=== PATIENT | female | born 1995 | race African-American/Black ===

== ENCOUNTER 2018-04-20 11:11 | Emergency (ER) | payer OTHER | END 2018-04-20 13:12 | disposition home or self-care (01) | LOC: ERS 11:11 | DX: R09.81 Nasal congestion (principal); L98.9 Disorder of the skin and subcutaneous tissue, unspecified | CPT/HCPCS: 99282 ==

== ENCOUNTER 2019-05-13 15:17 | Emergency (ER) | payer OTHER ==
[2019-05-13 16:03] LABS: Bilirubin Small (Negative); Blood, Urine Moderate (Negative); Glucose, Urine (Dipstick) Negative (Negative); Leukocyte Small (Negative); Nitrite Negative (Negative); Protein, Urine (Dipstick) 100 mg/dL (Neg-Trace)
[2019-05-13 16:06] LABS: Clarity Turbid (Clear)
[2019-05-13 16:09] LABS: Bacteria/HPF 4+ HPF (None Seen); Squamous Epithelial Greater than 50 HPF (0-3)
== END 2019-05-13 16:17 | disposition short-term general hospital (02) ==
LOC: ERS 15:17
DX: O26.893 Other specified pregnancy related conditions, third trimester (principal); N89.8 Other specified noninflammatory disorders of vagina; O99.89 Other specified diseases and conditions complicating pregnancy, childbirth and the puerperium; R30.0 Dysuria; Z3A.40 40 weeks gestation of pregnancy
CPT/HCPCS: 81003; 81015

== ENCOUNTER 2019-05-13 15:56 | Inpatient (IN) | payer OTHER ==
[~2019-05-13 15:56] MED LIST: Bupivacaine 0.25% HCL 30 ML VIAL ONE
[2019-05-13 16:44] VITALS: BMI 41.0
[2019-05-13] MEDS ORDERED: hydrALAZINE 20 MG/ML VIAL SLOW IVP PRN ×2 (17:04→19:04)
--- NOTE | 2019-05-13 17:06 | PDOC.LDHP ---
Labor and Delivery H&P Chief complaint: contractions HPI: 23 y/o G1 at 40w4d presents with ctx for the last few hours. Denies VB, LOF, or decreased FM. Reports she saw Dr. Mack in first trimester but has otherwise not had care. ROS neg for HEENT, cv, pulm, gi, gu, neuro, psych, skin, musculoskeletal or constitutional symptoms other than mentioned above. OB History Details: First Current complications: none Past Medical History: None Current medications: none Previous surgical history: none Allergies/Adverse Reactions: Allergies Allergy/AdvReac Type Severity Reaction Status Date / Time No Known Allergies Allergy Verified 05/13/19 16:34 Social history: none - Physical Exam Vital signs reviewed and normal: yes General: NAD, resting Lungs: nonlabored breathing Abdomen: gravid Extremeties: no edema FHT: category 1 (130s, mod variability, + accels, no decels) [place] contractions every: irregular - Vaginal Exam cm dilated: 2 Effacement: 50% Station: -2 - Assessment L&D Assessment: medically indicated induction (anhydramnios on formal ultrasound at term) - Plan Plan: admit to L&D, labor augmentation if indicated, informed consent obtained, anesthesia consult for pain management (if desired)
[2019-05-13] MEDS ORDERED: HYDROcodone/Acetaminophen 5/325 mg Tablet PO PRN ×2 (19:04)
[2019-05-13] MEDS ORDERED: Carboprost 250 MCG/ML AMP IM PRN (19:04)
[2019-05-13] MEDS ORDERED: Methylergonovine 0.2 MG/ML VIAL IM PRN (19:04)
[2019-05-13] MEDS ORDERED: Diphenoxylate HCl/Atropine Tablet PO PRN ×2 (19:04)
[2019-05-13] MEDS ORDERED: Acetaminophen 500 MG TAB PO PRN (19:04)
[2019-05-13] MEDS ORDERED: Promethazine HCl 25 MG/ML VIAL IM PRN (19:04)
[2019-05-13] MEDS ORDERED: Ibuprofen 800 MG TAB PO PRN (19:04)
[2019-05-13] MEDS ORDERED: Ondansetron PF 4 MG/2 ML Vial IVP PRN (19:04)
[2019-05-13] MEDS ORDERED: Misoprostol 200 MCG TAB PR PRN (19:04)
[2019-05-13] MEDS ORDERED: NS / Oxytocin 40 units/1000ml 1,000 ML IV PRN (19:04)
[2019-05-13] MEDS ORDERED: Lidocaine 1% (PF) 30 ML VIAL SC PRN (19:04)
[2019-05-13] MEDS ORDERED: Butorphanol Tartrate 1 MG/ML VIAL SLOW IVP PRN (19:04)
[2019-05-13] MEDS ORDERED: NS w/ Oxytocin 10 units 500 ML IV SCH (19:15)
--- NOTE | 2019-05-13 19:44 | ULT ---
ULTRASOUND OBSTETRICAL COMPLETE: DATE: 05/13/2019 HISTORY: 23-year-old female with no care FINDINGS: number: jensen lie: Cephalic Maternal cervix: Obscured by shadowing from the head. Placenta: Anterior. Amniotic fluid volume: No amniotic fluid pocket identified. ABIGAIL = 0cm heart rate: 127 bpm The following anatomy is visualized: Head, stomach, kidneys, and bladder. The rest of the anatomy is not visualized because of lack of amniotic fluid and low position of head. biometry: Biparietal diameter (BPD): 9.1 cm 36 w 6 d Head circumference (HC): 32.7 cm 37 w 1 d Abdominal circumference (AC): 34.9 cm 38 w 6 d Femur length (FL): 7.5 cm 38 w 3 d Average ultrasound age (AUA): 37 w 0 d Estimated date of delivery (DIANE): 06/03/2019 Estimated weight (EFW): 3445 g +/- 510 g IMPRESSION: 1) Live 3rd trimester intrauterine gestation. 2) Estimated gestational age of 37 weeks, 0 days 3) cephalic lie. 4) oligohydramnios
[2019-05-13 20:06] LABS: Amphetamine Not Detected (NotDetected); Barbiturates Screen Not Detected (NotDetected); Benzodiazepine Screen Not Detected (NotDetected); Cocaine Metabolite Screen Not Detected (NotDetected); Medtox Control Line Valid? VALID (VALID); Medtox Reader # READER 4; Methadone Not Detected (NotDetected); Methamphetamine Not Detected (NotDetected); Opiate Screen Not Detected (NotDetected); Oxycodone Screen Not Detected (NotDetected); Phencyclidine (PCP) Not Detected (NotDetected); THC/Cannabinoid Screen Not Detected (NotDetected); Tricyclic Screen Not Detected (NotDetected)
[2019-05-13] MEDS: Lactated Ringer's 1,000 ML IV SCH (20:34)
[2019-05-13 21:02] LABS: Hemoglobin 10.8 g/dL (12.0-16.0); Mean Corpuscular HGB CONC 32.9 g/dL (32.0-36.0); Mean Corpuscular Hemoglobin 25.8 pg (27.0-31.0); Mean Corpuscular Volume 78.3 fL (78.0-98.0); Mean Platelet Volume 6.6 fL (7.4-10.4); Platelet Count 455 thou/uL (130-400); RBC Distribution Width 15.1 % (11.5-14.5); Red Blood Cell (RBC) Count 4.18 mill/uL (4.20-5.40); White Blood Cell (WBC) Count 9.2 thou/uL (4.8-10.8)
[2019-05-13 22:15] LABS: Syphilis Antibody Nonreactive (Nonreactive); Syphilis Antibody Index 0.06 S/CO (<1.00 Non-Reactive)
[2019-05-14 00:44] LABS: HBSAg Index 0.19 S/CO (0-0.99); HIV (1/2) Antibody/Antigen Non-Reactive (NonReactive); HIV 1/2 INDEX 0.15 S/CO (<1.00); Hep B Surf Ag Non-Reactive S/CO (NonReactive)
[2019-05-14] MEDS ORDERED: Fentanyl 4 mcg/Bup 0.1% Cadd 100 ML ONE ×2 (01:53→08:31)
[2019-05-14] MEDS: Lactated Ringer's 1,000 ML IV SCH ×2 (02:37→22:22)
[2019-05-14] MEDS ORDERED: diphenhydrAMINE 50 MG/ML VIAL IVP PRN (03:10)
[2019-05-14] MEDS ORDERED: EPHEDRINE 25 MG/5 ML SYRINGE SLOW IVP PRN (03:10)
[2019-05-14] MEDS ORDERED: Promethazine HCl 25 MG/ML VIAL IM PRN ×2 (03:10→16:36)
[2019-05-14] MEDS ORDERED: Lactated Ringer's 500 ML IV PRN (03:10)
[2019-05-14] MEDS ORDERED: Ondansetron PF 4 MG/2 ML Vial IVP PRN (03:10)
[2019-05-14] MEDS ORDERED: Naloxone HCl 0.4 mg/ml Vial IVP PRN ×2 (03:10)
[2019-05-14] MEDS ORDERED: Acetaminophen 325 MG TAB PO PRN (03:10)
[2019-05-14] MEDS ORDERED: Fentanyl 4 mcg/Bupivacaine 0.1% Cassette 100 ML EPIDURAL SCH (03:15)
[2019-05-14] MEDS ORDERED: Communication Order-Pharmacy FS SCH (03:15)
[2019-05-14] MEDS ORDERED: FLU VACC QS2019-20(6MOS UP)/PF 60 MCG/0.5 ML SYRINGE IM ONE (09:00)
[2019-05-14] MEDS ORDERED: Penicillin G Potassium 5 MILL.UNITS VIAL ONE (10:02)
--- NOTE | 2019-05-14 14:04 | DN ---
DATE OF PROCEDURE: 05/14/2019 The patient delivered a female of 40 weeks and 5 days gestation on 05/14/2019 at 1301 hour by an uncomplicated term spontaneous vaginal delivery. Placenta delivered spontaneously followed by Pitocin infusion. There was a small second-degree laceration requiring repair for hemostasis. Estimated blood loss [address] Martinez is the delivering physician. Counts were correct. Condition, mother and baby are stable in the room in the immediate . Job ID: [id number]
[2019-05-14] MEDS ORDERED: hydrALAZINE 20 MG/ML VIAL SLOW IVP PRN (16:36)
[2019-05-14] MEDS ORDERED: Milk Of Magnesia 30 ML UDCUP PO PRN (16:36)
[2019-05-14] MEDS ORDERED: Bisacodyl 10 MG SUPP PR PRN (16:36)
[2019-05-14] MEDS ORDERED: NS / Oxytocin 40 units/1000ml 1,000 ML IV SCH (16:36)
[2019-05-14] MEDS ORDERED: Lanolin Ointment 7 GM TUBE TOP PRN (16:36)
[2019-05-14] MEDS ORDERED: Benzocaine-Menthol 82.5 ML CAN TOP PRN (16:36)
[2019-05-14] MEDS ORDERED: diphenhydrAMINE 25 MG CAP PO PRN (16:36)
[2019-05-14] MEDS ORDERED: Oxytocin 10 UNITS/ML VIAL ONE (17:55)
[2019-05-14] MEDS: Ferrous Sulfate 325 MG TAB PO SCH (19:00)
[2019-05-14] MEDS: Ibuprofen 800 MG TAB PO SCH (22:25)
[2019-05-14] MEDS: Docusate Calcium (SURFAK) 240 MG CAP PO SCH (22:25)
--- NOTE | 2019-05-15 06:11 | PRG ---
DATE OF SERVICE: 05/15/2019 PRIMARY ELECTRIC SHOVEL OPERATOR: None. SUBJECTIVE: The patient is a 23-year-old, now day 1, status post a term spontaneous vaginal delivery. She reports that she is tolerating p.o., voiding on her own, having decreased lochia, and good pain control. OBJECTIVE: VITAL SIGNS: Blood pressure is 113/71, temperature 98.9, pulse is 79, and respiratory rate of 16. GENERAL: She appears to be in no acute distress. She is alert, oriented, cooperative, and pleasant to interact with. HEENT: Head is normocephalic, atraumatic. ABDOMEN: Fundus is firm at the umbilicus. EXTREMITIES: Nontender and nonedematous. LABORATORY DATA: hemoglobin is still pending. Hemoglobin prior to delivery 10.6, hematocrit 32.7, and platelets 455,000. ASSESSMENT AND PLAN: The patient is a 23-year-old female, day 1, status post term spontaneous vaginal delivery. Anticipate discharge tomorrow. We have Case Management consult pending. consult pending. Job ID: [id number]
[2019-05-15] MEDS: Ibuprofen 800 MG TAB PO SCH ×3 (06:13→21:53)
[2019-05-15 06:50] LABS: Hemoglobin 9.4 g/dL (12.0-16.0); Mean Corpuscular HGB CONC 32.7 g/dL (32.0-36.0); Mean Corpuscular Hemoglobin 25.9 pg (27.0-31.0); Mean Corpuscular Volume 79.3 fL (78.0-98.0); Mean Platelet Volume 6.3 fL (7.4-10.4); Platelet Count 378 thou/uL (130-400); RBC Distribution Width 14.9 % (11.5-14.5); Red Blood Cell (RBC) Count 3.63 mill/uL (4.20-5.40); White Blood Cell (WBC) Count 9.8 thou/uL (4.8-10.8)
[2019-05-15] MEDS: Docusate Calcium (SURFAK) 240 MG CAP PO SCH ×2 (08:19→21:54)
[2019-05-15] MEDS: Ferrous Sulfate 325 MG TAB PO SCH ×2 (08:19→17:16)
[2019-05-15] MEDS: Prenatal Vitamin 1 TAB PO SCH (08:19)
[2019-05-15] MEDS ORDERED: Adacel (T-DAP) 0.5 ML SYRINGE IM ONE (09:00)
[2019-05-16] MEDS: Ibuprofen 800 MG TAB PO SCH (06:28)
[2019-05-16 08:23] VITALS: BP 110/60; TEMP 98.1
[2019-05-16] MEDS: Ferrous Sulfate 325 MG TAB PO SCH (08:44)
[2019-05-16] MEDS: Prenatal Vitamin 1 TAB PO SCH (08:44)
[2019-05-16] MEDS: Docusate Calcium (SURFAK) 240 MG CAP PO SCH (08:44)
== END 2019-05-16 14:05 | disposition home or self-care (01) | DRG 807 ==
LOC: L&D/OP 15:56 → L&D 19:04 → 3SE 05-14 17:22
PROVIDERS: ADMIT Obstetrics & Gynecology; ATTEND Obstetrics & Gynecology
PROC: 10E0XZZ Delivery of Products of Conception, External Approach (ICD-10-PCS; principal; 2019-05-13)
PROC: 0KQM0ZZ Repair Perineum Muscle, Open Approach (ICD-10-PCS; 2019-05-13)
DX: O70.1 Second degree perineal laceration during delivery (principal); Z37.0 Single live birth; Z3A.40 40 weeks gestation of pregnancy
CPT/HCPCS: 36415; 51702; 76805; 76815; 80306; 81003; 81015; 85027; 86762; 86780; 86850; 86900; 86901; 87340; 87389; 99285; J2540; J2590; S0020